=== PATIENT | male | born 1995 | race Caucasian/White ===

== ENCOUNTER 2018-06-05 22:04 | Emergency (ER) | payer OTHER ==
[2018-06-05 22:20] VITALS: BP 156/87; PULSE 116; RESP 16; O2SAT 99
[2018-06-05] MEDS ORDERED: BACITRACIN 500 U/GM OIN TOP ONE ×2 (22:24→22:25)
== END 2018-06-05 22:37 | disposition home or self-care (01) ==
LOC: ED 22:04
DX: R45.4 Irritability and anger (principal); S60.921A Unspecified superficial injury of right hand, initial encounter; S60.949A Unspecified superficial injury of unspecified finger, initial encounter
CPT/HCPCS: 99282; 99284; A6402; A9270-GY

== ENCOUNTER 2018-07-09 06:05 | Emergency (ER) | payer OTHER ==
[2018-07-09] MEDS ORDERED: ALBUTEROL/IPRATROPIUM 1 VIAL SOL INH ONE (06:10)
[2018-07-09] MEDS ORDERED: ALBUTEROL/IPRATROPIUM 1 VIAL SOL ONE (06:11)
[2018-07-09 06:47] VITALS: RESP 18
[2018-07-09 06:48] VITALS: BP 134/92; PULSE 89; TEMP 97; O2SAT 97
== END 2018-07-09 06:45 | disposition home or self-care (01) ==
LOC: ED 06:05
DX: J30.81 Allergic rhinitis due to animal (cat) (dog) hair and dander (principal); R06.02 Shortness of breath
CPT/HCPCS: 99282; 99283